=== PATIENT | female | born 1960 | race Caucasian/White ===

== ENCOUNTER → 2018-10-29 | Outpatient (CLI) | payer OTHER | LOC: MC.RAD 11:30 | DX: Z12.31 Encounter for screening mammogram for malignant neoplasm of breast (principal) ==

== ENCOUNTER → 2019-11-05 | Outpatient (CLI) | payer OTHER | LOC: MC.RAD 11-02 08:15 | DX: Z12.31 Encounter for screening mammogram for malignant neoplasm of breast (principal); Z00.00 Encounter for general adult medical examination without abnormal findings ==

== ENCOUNTER → 2020-12-19 | Outpatient (CLI) | payer OTHER | LOC: MC.RAD 08:36 | DX: Z12.31 Encounter for screening mammogram for malignant neoplasm of breast (principal) ==

== ENCOUNTER → 2021-12-20 | Outpatient (CLI) | payer OTHER | LOC: MC.RAD 08:17 | DX: Z12.31 Encounter for screening mammogram for malignant neoplasm of breast (principal) ==

== ENCOUNTER 2021-12-28 07:29 | Day surgery (SDC) | payer OTHER ==
[~2021-12-28] VITALS: Ht 162.6 cm; Wt 72.8 kg
[2021-12-28] MEDS ORDERED: REVIA 50MG TABL50 MG PO (08:09)
[2021-12-28 08:16] VITALS: BP 135/96; PULSE 72; TEMP 96.8
[2021-12-28 09:35] VITALS: BP 109/72; PULSE 77; TEMP 97.5
[2021-12-28 09:50] VITALS: BP 121/97; PULSE 69
[2021-12-28 10:05] VITALS: BP 106/73; PULSE 72
--- NOTE | 2021-12-28 10:15 | NUR ---
0930-DR BURKS IN ROOM DISCUSSING PROCEDURE FINDING WITH . 0949-PT TO [place] 2 PER CART FROM ENDO ROOM. REPORT RECEIVED. VS OBTAINED. CALL LIGHT WITHIN REACH. PT TOLERATING COFFEE AND TOAST. 1005-IV DC'D. 1010-DISCHARGE EDUCATION COMPLETED WITH PT AND HER . VERBALIZED UNDERSTANDING OF HOME AND FOLLOW UP CARE. ALL QUESTIONS ANSWERED. DISCHARGE PAPERWORK GIVEN TO PT. 1015-PT OFF UNIT PER WHEELCHAIR. PT DISCHARGED TO HOME WITH PER PERSONAL VEHICLE.
== END 2021-12-28 10:15 | disposition home or self-care (01) ==
LOC: SDCO 07:29
DX: Z12.11 Encounter for screening for malignant neoplasm of colon (principal)
CPT/HCPCS: J2704; J7120

== ENCOUNTER → 2023-01-18 | Outpatient (CLI) | payer OTHER ==
[~2023-01-18] MED LIST: REVIA 50MG TABL50 MG PO
== END ==
LOC: MC.RAD 13:33
DX: Z12.31 Encounter for screening mammogram for malignant neoplasm of breast (principal)